=== PATIENT | female | born 1985 ===

== ENCOUNTER 2017-10-31 16:27 | Outpatient (REF) | payer OTHER, SELFPAY ==
--- NOTE | 2017-10-31 15:00 | ENDO_PTH ---
PATIENT: PREETHI NIEVES LOC: [facility] U#:[id number] AGE/SX: 32/F ROOM: RE10/31/[address]: Brooke Rodriguez MD : 1985 BED: DIS: 10/31/2017 SPEC #: [id number] RECD: 10/31/17 17:35 STATUS: FARRUKH REQ #: [id number] PEDRO: 10/31/17 15:[address]: Brooke Rodriguez DEPT: Surgical Specimen RECD BY: Yessi Alfred ENTERED: 10/31/17 17:36 SP TYPE: Endo OTHR DR: Unknown,Unknown Tissues: 1 - ENDOCERVICAL BX/CURRETTE 2 - CERVICAL BIOPSY 3 - CERVICAL BIOPSY Procedures: GROSS AND MICRO LEVEL 4 Comments: [id number]
== END 2017-10-31 16:47 ==
LOC: LBN 16:27
PROVIDERS: Visit Provider Obstetrics & Gynecology
DX: R87.612 Low grade squamous intraepithelial lesion on cytologic smear of cervix (LGSIL) (principal)
CPT/HCPCS: 88305